=== PATIENT | female | born 1960 | race Caucasian/White ===

== ENCOUNTER 2019-05-27 20:37 | Observation (INO) ==
[2019-05-27] MEDS ORDERED: Naloxone 0.4 MG/ML INJ IVP PRN (23:16)
[2019-05-28 00:54] LABS: Hematocrit 39.2 % (35.3-44.9); Hemoglobin 12.7 g/dL (11.5-15.4); Mean Corpuscular HGB Conc 32.4 g/dL (31.6-35.5); Mean Corpuscular Hemoglobin 28.9 pg (28.0-33.3); Mean Corpuscular Volume 89.3 fL (83.0-100.0); Mean Platelet Volume 10.3 fL (9.4-12.4); Platelet Count 262 K/mcL (140-400); Red Blood Count 4.39 M/mcL (3.82-4.97); Red Cell Distribution Width 12.9 % (11.5-14.5)
[2019-05-28] MEDS ORDERED: Levalbuterol 1 PUFF INHALER IH PRN (01:01)
[2019-05-28 01:13] LABS: Alanine Aminotransferase 26 Units/L (7-52); Albumin 3.8 g/dL (3.5-5.7); Albumin/Globulin Ratio 1.6 (1.1-2.2); Alkaline Phosphatase 110 Units/L (34-104); Aspartate Amino Transferase 16 Units/L (13-39); BUN/Creatinine Ratio 17 (6-26); Bilirubin,Total 0.3 mg/dL (0.3-1.0); Blood Urea Nitrogen 12 mg/dL (6-20); Calcium 8.7 mg/dL (8.6-10.3); Carbon Dioxide 23 mEq/L (23-29); Chloride 108 mEq/L (98-107); Globulin 2.4 g/dL (2.4-3.5); Glucose 150 mg/dL (70-105); Osmolality,Calculated 289 (280-300); Potassium 3.5 mEq/L (3.5-5.1); Sodium 138 mEq/L (136-145); Total Protein 6.2 g/dL (6.4-8.9); eGFR For African Americans > 60 (> 60); eGFR For Non-African Americans > 60 (> 60)
[2019-05-28] MEDS: Acetaminophen 325 MG TABLET PO PRN ×2 (01:27→09:06)
[2019-05-28 01:28] LABS: Estimated Average Glucose 134 mg/dl
[2019-05-28] MEDS ORDERED: hydroCHLOROthiazide 25 MG TABLET PO SCH (09:00)
[2019-05-28] MEDS ORDERED: Loratadine 10 MG TABLET PO SCH (09:00)
[2019-05-28] MEDS ORDERED: lisinopriL 10 MG TABLET PO SCH (09:00)
[2019-05-28] MEDS ORDERED: amLODIPine 5 MG TABLET PO SCH (09:00)
[2019-05-28] MEDS ORDERED: Budesonide/Formoterol 160/4.5 1 PUFF INH IH SCH (10:00)
[2019-05-28] MEDS ORDERED: Nitroglycerin 1,000 MCG/10 ML VIAL IV ONE (10:25)
[2019-05-28] MEDS ORDERED: 0.9 % Sodium Chloride 1,000 ML ONE (10:25)
[2019-05-28] MEDS ORDERED: Heparin 1,000 UNITS/500 mL 500 ML ONE (10:25)
[2019-05-28] MEDS ORDERED: *HR* Heparin 10,000 UNIT/10 ML VIAL ONE (10:25)
[2019-05-28] MEDS ORDERED: ISOVUE-370 200 ML INFUS..BTL ONE (10:25)
[2019-05-28] MEDS ORDERED: *HR* Midazolam HCl 2 MG/2 ML VIAL ONE (10:37)
[2019-05-28 13:09] VITALS: BP 113/65
== END 2019-05-28 13:15 | disposition home or self-care (01) ==
LOC: 3BNU → SUATTDRO 22:17
PROVIDERS: ADMIT Internal Medicine; ATTEND Internal Medicine